=== PATIENT | female | born 1935 | race Caucasian/White ===

== ENCOUNTER 2024-09-23 09:02 | Emergency (ER) | payer MEDICARE ==
[~2024-09-23] VITALS: Ht 149.9 cm; Wt 45.5 kg
[2024-09-23 09:30] VITALS: TEMP 98.6
[2024-09-23] MEDS ORDERED: DONE-52 PO (09:32)
[2024-09-23] MEDS ORDERED: PENT400T72 PO (09:32)
[2024-09-23] MEDS ORDERED: ASPI-1198 PO (09:32)
[2024-09-23] MEDS ORDERED: AMLO5TAB66 PO (09:32)
[2024-09-23] MEDS ORDERED: SIMV10TA97 PO (09:32)
[2024-09-23] MEDS: LIDOCAINE 1% 10 ML VIAL INJ ONE (10:12)
[2024-09-23] MEDS: ACETAMINOPHEN 325 MG TABLET PO ONE (10:13)
[2024-09-23] MEDS: BACITRACIN 0.9 GM PACKET OINTMENT TP ONE (10:14)
[2024-09-23] MEDS: PERTUSS(ACELL),DIPH,TET/PF 0.5 ML SYRINGE [ADULT] IM. ONE (10:14)
[2024-09-23] MEDS ORDERED: BACI28.410 TP (10:15)
[2024-09-23 10:30] VITALS: BP 148/71; PULSE 86; RESP 15; O2SAT 99
== END 2024-09-23 10:34 | disposition home or self-care (01) ==
LOC: EMS 09:02
DX: S61.411A Laceration without foreign body of right hand, initial encounter (principal); S51.811A Laceration without foreign body of right forearm, initial encounter; I10 Essential (primary) hypertension; F03.90 Unspecified dementia, unspecified severity, without behavioral disturbance, psychotic disturbance, mood disturbance, and anxiety; Z79.82 Long term (current) use of aspirin; Z79.899 Other long term (current) drug therapy; X58.XXXA Exposure to other specified factors, initial encounter; Y93.H2 Activity, gardening and landscaping; Y92.89 Other specified places as the place of occurrence of the external cause; Y99.8 Other external cause status
CPT/HCPCS: 12002; 90471; 90715; 99283

== ENCOUNTER 2025-02-10 13:04 | Emergency (ER) | payer MEDICARE ==
[~2025-02-10] VITALS: Ht 152.4 cm; Wt 45.5 kg
[~2025-02-10 13:04] MED LIST: AMLO5TAB66 PO; ASPI-1198 PO; BACI28.410 TP; DONE-52 PO; PENT400T72 PO; SIMV10TA97 PO
[2025-02-10 13:25] VITALS: BP 167/56; PULSE 68; RESP 18; TEMP 97.9; O2SAT 99
[2025-02-10] MEDS: BACITRACIN 28 GM OINTMENT TP ONE (14:35)
== END 2025-02-10 15:07 | disposition home or self-care (01) ==
LOC: EMS 13:18
DX: S51.811A Laceration without foreign body of right forearm, initial encounter (principal); S51.812A Laceration without foreign body of left forearm, initial encounter; I10 Essential (primary) hypertension; F03.90 Unspecified dementia, unspecified severity, without behavioral disturbance, psychotic disturbance, mood disturbance, and anxiety; Z79.82 Long term (current) use of aspirin; Z79.899 Other long term (current) drug therapy; W19.XXXA Unspecified fall, initial encounter; Y93.89 Activity, other specified; Y92.89 Other specified places as the place of occurrence of the external cause; Y99.8 Other external cause status
CPT/HCPCS: 99282; Z7502; Z7610